=== PATIENT | male | born 1945 | race Caucasian/White ===

== ENCOUNTER → 2016-11-24 | Outpatient (REF) | payer MEDICARE, OTHER ==
[~2016-11-24] MED LIST: /CIPR75TA OR; /TAMS4CA OR; ALPR0.5T3 OR; ATEN25TA OR; FLAG500T OR; NAPR250T OR; NEUR100C OR; PREG50CA OR; ULTRTA OR; naproxen PO
== END ==
LOC: M LAB REF 16:50
PROVIDERS: ATTEND Physician Assistant Medical
DX: L03.031 Cellulitis of right toe (principal)